=== PATIENT | female | born 1945 | race Caucasian/White ===

== ENCOUNTER 2017-06-17 20:15 | Inpatient (IN) ==
--- NOTE | 2017-06-17 21:25 | Emergency Department Note ---
Disposition Clinical Impression: Left hip pain Hip dislocation, left Qualifiers: Encounter type: initial encounter Qualified Code(s): S73.005A - Unspecified dislocation of left hip, initial encounter Disposition: Admitted As Inpatient Condition: Good Referrals: Levi Fu DO [Primary Care Provider] - Forms: ED Satisfaction Letter Time of Disposition: 00:27 General Adult HPI - General Chief complaint: ED Extremity Injury, Lower Stated complaint: l hip fracture Time Seen by Provider: 06/17/17 20:17 Source: patient, EMS Limitations: no limitations Nursing Notes Reviewed: Yes Vital Signs Reviewed: Yes - History of Present Illness HPI Narrative: Patient is a 72-year-old female that presents to the emergency department via transfer from [facility] in [place]. Patient was reported to have left hip pain and a dislocation on x-ray. Patient reports that she was sitting down into a chair today and then felt pain in her hip. Patient states that she has had hip replacements in the past. She states that she feels that her leg is shorter and more internally rotated than normal. Patient states that her pain is a 7 out of 10. Pain Scale: 9 - Related Data Home Medications Medication Instructions Recorded Confirmed [place] Dm 15 ml PO Q6H PRN 04/25/17 05/08/17 Celecoxib [Celebrex] 200 mg PO DAILY 04/25/17 05/08/17 Docusate [Colace] 100 mg PO BID PRN 04/25/17 05/08/17 Fluticasone Propionate Nasal 1 - 2 spray NS DAILY 04/25/17 05/08/17 [Flonase] Fluticasone/Salmeterol [Advair 1 puff IH BID 04/25/17 05/08/17 250-50 Diskus] Furosemide [Lasix] 40 mg PO DAILY 04/25/17 05/08/17 Methocarbamol [Robaxin] 500 mg PO TID PRN 04/25/17 05/08/17 Mometasone/Formoterol [Dulera 200 2 puff IH Q12H 04/25/17 05/08/17 Mcg/5 Mcg Inhaler] Montelukast [Singulair] 10 mg PO DAILY 04/25/17 05/08/17 OxyCODONE/APAP 5/325 [Percocet 1 tab PO TID PRN 04/25/17 05/08/17 5/325 MG] Potassium Chloride [K-Tab ER] 20 meq PO DAILY 04/25/17 05/08/17 Pramipexole Di-HCl [Pramipexole 0.125 mg PO BID 04/25/17 05/08/17 Dihydrochloride] Pregabalin [Lyrica] 100 mg PO BID 04/25/17 05/08/17 Ranitidine HCl [Acid [place]] 150 mg PO HS 04/25/17 05/08/17 Solifenacin Succinate [Vesicare] 5 mg PO DAILY 04/25/17 05/08/17 Tizanidine HCl 4 mg PO HS PRN 04/25/17 05/08/17 traZODone [TraZODone] 50 mg PO HS 04/25/17 05/08/17 Previous Rx's Medication Instructions Recorded Aspirin Enteric Coated [Aspirin EC] 325 mg PO BID #20 tablet. 04/22/17 OxyCODONE Immed Rel [Roxicodone 5 5 mg PO Q4HR PRN 5 Days #20 tablet 05/11/17 MG] GuaiFENesin/Dextromethorphan 1 each PO BID #14 tab.er.12h 06/17/17 [Mucinex DM] Allergies Allergy/AdvReac Type Severity Reaction Status Date / Time Penicillins Allergy Hives Verified 06/17/17 08:45 All systems ED: reviewed and negative except as stated. Cardiovascular: Denies: chest pain Respiratory: Denies: dyspnea Gastrointestinal: Denies: abdominal pain, nausea, vomiting Musculoskeletal: Reports: other (left hip pain) Past Medical History - Past Medical History Medical history: Reports: arthritis, asthma, diabetes, GERD, hypertension Surgical history: Reports: hip replacement, hysterectomy Psychiatric history: Reports: no psych history - Social History Smoking Status: Former smoker Smokeless Tobacco Status: No Alcohol use: Reports: none Drug use: Reports: none Physical Exam - General Limitations: no limitations General appearance: alert, in no apparent distress - Head Head exam: atraumatic, normocephalic - Eye Eye exam: Present: normal appearance, EOMI - Neck Neck exam: Present: normal inspection, full ROM, trachea midline - Respiratory Respiratory exam: Present: normal lung sounds bilaterally. Absent: respiratory distress, wheezes - Cardiovascular Cardiovascular exam: Present: regular rate, normal rhythm, normal heart sounds, +S1, +S2 - Abdominal Exam Abdominal exam: Present: soft, Non-Tender, normal bowel sounds - Extremities Exam Extremities exam: Present: other (The left lower extremity appears to be shortened and internally rotated. The patient has pain over the left hip.) - Expanded Lower Extremity Exam Hip/Pelvis exam: Present: tenderness (left hip), deformity, internal rotation, shortening. Absent: normal inspection, full ROM Neurovascular/Tendon exam: Present: normal capillary refill, normal fine/light touch. Absent: pulse deficit, sensory deficit, extremity cold to touch - Neurological Exam Neurological exam: Present: alert, oriented X3 - Psychiatric Psychiatric exam: Present: normal affect, normal mood - Skin Skin exam: Present: warm, dry, intact, other (Surgical scar over the left hip) Course Vital Signs Temperature 98.1 F 06/17/17 20:23 Pulse Rate 79 06/17/17 20:23 Respiratory Rate 18 06/17/17 20:23 Blood Pressure 140/69 06/17/17 20:23 O2 Sat by Pulse Oximetry 97 06/17/17 20:23 Temperature 97.6 F 06/17/17 23:58 Pulse Rate 94 06/17/17 23:58 Respiratory Rate 20 06/17/17 23:58 Blood Pressure 135/83 06/17/17 23:58 O2 Sat by Pulse Oximetry 98 06/17/17 22:59 Oxygen Delivery Oxygen Delivery [00:05] Nasal Cannula Oxygen Delivery [00:03] Nasal Cannula Oxygen Delivery Room Air Procedures - Orthopedic Joint Reduction Joint #1 Consent Obtained: written consent Side: left Joint Reduction Location: hip ASA Classification: CLASS II-Mild systemic disease Analgesia: procedural sedation Technique used: traction/counter-traction, direct manipulation Post-reduction neuro exam: intact Post-reduction vascular: intact Patient Tolerated Procedure: well Additional Comments: Hip was unable to be reduced. Medical Decision Making - MDM Narrative Medical decision making narrative: X-rays from an outside facility were reviewed and there was a hip dislocation. I called and spoke with Dr. Correa and he recommended that we try to reduce the hip here in the emergency department. Procedural sedation and there was 2 attempts made to reduce the patient's hip but they were unsuccessful. I then called Dr. Correa who recommended the patient be admitted to the hospital under the medicine service and they would see them in consult. I called and spoke with the admitting hospitalist made except to the patient to their service. They did request that basic laboratory testing be obtained. A CBC, BMP and coagulation studies were obtained. The patient will be admitted to the hospital at this time for further evaluation and management. A consult was placed orthopedic surgery for Dr. Correa. On reevaluation after the attempted hip reduction the patient had normal sensation and good pulses. Patient was neurovascularly intact. Due to the patient at the reduction was unsuccessful and she would need to be admitted to the hospital. She was in agreement with this. - Radiology Data Radiology results reviewed: Yes I reviewed the patient's radiology results.
[2017-06-17] MEDS ORDERED: *HR* Etomidate 20 MG/10 ML AMPUL IVP ONE (22:11)
[2017-06-17] MEDS ORDERED: *HR* FentaNYL (PF) 100 MCG/2 ML VIAL IVP ONE (22:27)
[2017-06-17] MEDS ORDERED: 0.9 % Sodium Chloride 500 ML IVC SCH (22:30)
--- NOTE | 2017-06-17 22:31 | Emergency Department Note ---
Disposition Clinical Impression: Left hip pain, Hip dislocation, left Disposition: Admitted As Inpatient Condition: Good General Adult HPI - General Chief complaint: ED Extremity Injury, Lower Stated complaint: l hip fracture Time Seen by Provider: 06/17/17 20:17 Source: patient, EMS Limitations: no limitations Nursing Notes Reviewed: Yes Vital Signs Reviewed: Yes - History of Present Illness Pain Scale: 7 - Related Data Home Medications Medication Instructions Recorded Confirmed [place] Dm 15 ml PO Q6H PRN 04/25/17 05/08/17 Celecoxib [Celebrex] 200 mg PO DAILY 04/25/17 05/08/17 Docusate [Colace] 100 mg PO BID PRN 04/25/17 05/08/17 Fluticasone Propionate Nasal 1 - 2 spray NS DAILY 04/25/17 05/08/17 [Flonase] Fluticasone/Salmeterol [Advair 1 puff IH BID 04/25/17 05/08/17 250-50 Diskus] Furosemide [Lasix] 40 mg PO DAILY 04/25/17 05/08/17 Methocarbamol [Robaxin] 500 mg PO TID PRN 04/25/17 05/08/17 Mometasone/Formoterol [Dulera 200 2 puff IH Q12H 04/25/17 05/08/17 Mcg/5 Mcg Inhaler] Montelukast [Singulair] 10 mg PO DAILY 04/25/17 05/08/17 OxyCODONE/APAP 5/325 [Percocet 1 tab PO TID PRN 04/25/17 05/08/17 5/325 MG] Potassium Chloride [K-Tab ER] 20 meq PO DAILY 04/25/17 05/08/17 Pramipexole Di-HCl [Pramipexole 0.125 mg PO BID 04/25/17 05/08/17 Dihydrochloride] Pregabalin [Lyrica] 100 mg PO BID 04/25/17 05/08/17 Ranitidine HCl [Acid Portal Architect] 150 mg PO HS 04/25/17 05/08/17 Solifenacin Succinate [Vesicare] 5 mg PO DAILY 04/25/17 05/08/17 Tizanidine HCl 4 mg PO HS PRN 04/25/17 05/08/17 traZODone [TraZODone] 50 mg PO HS 04/25/17 05/08/17 Previous Rx's Medication Instructions Recorded Aspirin Enteric Coated [Aspirin EC] 325 mg PO BID #20 tablet. 04/22/17 OxyCODONE Immed Rel [Roxicodone 5 5 mg PO Q4HR PRN 5 Days #20 tablet 05/11/17 MG] GuaiFENesin/Dextromethorphan 1 each PO BID #14 tab.er.12h 06/17/17 [Mucinex DM] Allergies Allergy/AdvReac Type Severity Reaction Status Date / Time Penicillins Allergy Hives Verified 06/17/17 08:45 Past Medical History - Past Medical History Medical history: Reports: arthritis, asthma, diabetes, GERD, hypertension Surgical history: Reports: hip replacement, hysterectomy Psychiatric history: Reports: no psych history - Social History Smoking Status: Former smoker Smokeless Tobacco Status: No Alcohol use: Reports: none Drug use: Reports: none Physical Exam - General Limitations: no limitations General appearance: alert, in no apparent distress Course - Reevaluation(s) Reevaluation #1: I examined this patient and my medical decision-making was reviewed with Dr. Luu. I agree with the documented findings, disposition and treatment plan. This is a 72 year-old female with history of HTN. A few hours ago, she had acute onset of left hip pain as she sat down in the car. She says this feels similar to previous hip dislocations. She was seen at [facility], where dislocation was confirmed, and she was transferred here for further management. On exam, vitals are stable. Patient comfortable. Left lower extremity shortened and internally rotated. Distal pulses are intact. Motor and sensory function intact. Dr. Luu has discussed the case with patient's orthopedist, Dr. Correa. He asks that we attempt reduction in the ED. Time: 22:28 Vital Signs Temperature 98.1 F 06/17/17 20:23 Pulse Rate 79 06/17/17 20:23 Respiratory Rate 18 06/17/17 20:23 Blood Pressure 140/69 06/17/17 20:23 O2 Sat by Pulse Oximetry 97 06/17/17 20:23 Temperature 97.6 F 06/17/17 23:58 Pulse Rate 94 06/17/17 23:58 Respiratory Rate 20 06/17/17 23:58 Blood Pressure 135/83 06/17/17 23:58 O2 Sat by Pulse Oximetry 98 06/17/17 22:59 Oxygen Delivery Oxygen Delivery [00:05] Nasal Cannula Oxygen Delivery [00:03] Nasal Cannula Oxygen Delivery Room Air
--- NOTE | 2017-06-18 00:48 | Internal Med History&Physical ---
Date of Encounter: 06/18/17 Time of Encounter: 00:46 Internal Medicine - H&P: HPI Chief complaint: hip fracture Admitted From: Emergency Dept Plans for Post Hospital Care: Home History of present illness: Ms. 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 This was suddenly as she was getting out of the car. She did not fall. She suddenly felt pain and noticed that her left lower extremity was shorter than her right. She went to [facility] where she was found to have a dislocation of her prior prostheses. Dr. Correa from orthopedics was consulted in the ED and recommended a trial of reducing the dislocation in the ED. This was attempted twice and was unsuccessful. The patient is being admitted for pain control and to be seen by orthopedics. Denies any other symptoms. Denies fever, chills, nausea, vomiting, chest pain, shortness of breath, abdominal pain, diarrhea, constipation, urinary symptoms, or neurological symptoms. Past Med Surg Social Fam HX - Past Medical History Medical history: arthritis, asthma, diabetes, GERD, hypertension Psychiatric history: no psych history - Past Surgical History Surgical History: hip replacement, hysterectomy - Social History Smoking Status: Former smoker Smokeless Tobacco Status: No Alcohol use: none Drug use: none Internal Medicine - H&P: Meds Aspirin Enteric Coated [Aspirin EC] 325 mg PO BID #20 tablet. 04/22/17 [Rx] [place] Dm 15 ml PO Q6H PRN 04/25/17 [History] Celecoxib [Celebrex] 200 mg PO DAILY 04/25/17 [History] Docusate [Colace] 100 mg PO BID PRN 04/25/17 [History] Fluticasone Propionate Nasal [Flonase] 1 - 2 spray NS DAILY 04/25/17 [History] Fluticasone/Salmeterol [Advair 250-50 Diskus] 1 puff IH BID 04/25/17 [History] Furosemide [Lasix] 40 mg PO DAILY 04/25/17 [History] Methocarbamol [Robaxin] 500 mg PO TID PRN 04/25/17 [History] Mometasone/Formoterol [Dulera 200 Mcg/5 Mcg Inhaler] 2 puff IH Q12H 04/25/17 [ History] Montelukast [Singulair] 10 mg PO DAILY 04/25/17 [History] OxyCODONE/APAP 5/325 [Percocet 5/325 MG] 1 tab PO TID PRN 04/25/17 [History] Potassium Chloride [K-Tab ER] 20 meq PO DAILY 04/25/17 [History] Pramipexole Di-HCl [Pramipexole Dihydrochloride] 0.125 mg PO BID 04/25/17 [ History] Pregabalin [Lyrica] 100 mg PO BID 04/25/17 [History] Ranitidine HCl [Acid Bench Carpenter] 150 mg PO HS 04/25/17 [History] Solifenacin Succinate [Vesicare] 5 mg PO DAILY 04/25/17 [History] Tizanidine HCl 4 mg PO HS PRN 04/25/17 [History] traZODone [TraZODone] 50 mg PO HS 04/25/17 [History] OxyCODONE Immed Rel [Roxicodone 5 MG] 5 mg PO Q4HR PRN 5 Days #20 tablet [Rx] GuaiFENesin/Dextromethorphan [Mucinex DM] 1 each PO BID #14 tab.er.12h 06/17/17 [Rx] 3 Allergy/AdvReac Type Severity Reaction Status Date / Time Penicillins Allergy Hives Verified 06/17/17 08:45 All Systems PM: A 10-system review of systems was performed and is negative for pertinent findings except as documented above in the HPI. Review of systems: All systems reviewed are negative except as mentioned above - Constitutional Vitals: Temp Pulse Resp BP Pulse Ox 97.6 F 94 20 135/83 98 06/17/17 23:58 06/17/17 23:58 06/17/17 23:58 06/17/17 23:58 06/17/17 22:59 Exam: GEN: NAD HEENT: AT, NC, No cyanosis, oral mucosa is moist, No JVD Lymphatics: No lymphadenoapthy Eyes: Extrocular muscles intact, anicteric CVS:RRR. S1, S2, No m/r/g RESP: CTAB ABD: Soft, NT, ND, +BS EXT: No edema, No rashes, 2+ DP. Left lower extremity is noted to be shortened compared to the right. It is internally rotated. NEURO: Nonfocal, CN II-XII intact, decreased range of motion on the left lower extremity. Psych: Cooperative, Not anxious or depressed - Assessment and plan (1) Hip dislocation, left Current Visit: Yes Status: Acute Assessment and plan: Admit the patient. Nothing by mouth now. Basic labs ordered. Consult orthopedics. Pain control. Qualifiers: Encounter type: initial encounter Qualified Code(s): S73.005A - Unspecified dislocation of left hip, initial encounter (2) Diabetes mellitus Current Visit: Yes Status: Acute Assessment and plan: Patient's diabetes is usually controlled with diet and lifestyle modifications. We will place on insulin sliding scale while here. Place on Accu-Cheks. Qualifiers: Diabetes mellitus type: type 2 Diabetes mellitus group home insulin use: without group home use Diabetes mellitus complication status: without complication Qualified Code(s): E11.9 - Type 2 diabetes mellitus without complications (3) HTN (hypertension) Current Visit: No Status: Chronic Assessment and plan: Resume home antihypertensives Qualifiers: Hypertension type: essential hypertension Qualified Code(s): I10 - Essential (primary) hypertension (4) DVT prophylaxis Current Visit: Yes Status: Acute Assessment and plan: Heparin subcutaneous - Time Spent With Patient Total time spent is greater than 50% in coordination of care (as documented) at patient's floor/unit and/or counseling patient:
[2017-06-18] MEDS ORDERED: Acetaminophen 325 MG TABLET PO PRN ×3 (01:07→21:29)
[2017-06-18] MEDS ORDERED: *HR* HYDROcodone/Acet 5/325 mg TABLET PO PRN ×2 (01:07→20:19)
[2017-06-18] MEDS ORDERED: Naloxone 0.4 MG/ML INJ IVP PRN ×5 (01:07→21:29)
[2017-06-18] MEDS ORDERED: *HR* Dextrose 50 % in Water (Syg) 50 ML SYRINGE IVP PRN ×3 (01:12→21:29)
[2017-06-18] MEDS ORDERED: Dextrose Gel 15 GM/37.5 ML TUBE PO PRN ×6 (01:12→21:29)
[2017-06-18] MEDS ORDERED: D5% in Water 1,000 ML IVC PRN ×3 (01:12→21:29)
[2017-06-18 01:24] LABS: Basophils # 0.1 K/mcL (0.0-0.2); Basophils % 0.7 %; Eosinophils # 0.1 K/mcL (0.0-0.6); Eosinophils % 1.1 %; Hematocrit 30.8 % (35.3-44.9); Hemoglobin 10.1 g/dL (11.5-15.4); Immature Granulocytes % 0.4 % (0-4); Lymphocytes # 1.2 K/mcL (0.6-4.6); Lymphocytes % 14.1 %; Mean Corpuscular HGB Conc 32.8 g/dL (31.6-35.5); Mean Corpuscular Hemoglobin 27.4 pg (28.0-33.3); Mean Corpuscular Volume 83.5 fL (83.0-100.0); Mean Platelet Volume 9.8 fL (9.4-12.4); Monocytes # 1.2 K/mcL (0.0-1.3); Monocytes % 13.6 %; Platelet Count 456 K/mcL (140-400); Red Blood Count 3.69 M/mcL (3.82-4.97); Red Cell Distribution Width 13.8 % (11.5-14.5); Segmented Neutrophils % 70.1 %
[2017-06-18 01:45] LABS: Calcium 8.9 mg/dL (8.6-10.3); Potassium 2.3 mEq/L (3.5-5.1)
[2017-06-18 02:14] LABS: Activated Partial Thrombo Time 30.4 Seconds (26.0-36.0); INR 1.3; Prothrombin Time 14.3 Seconds (9.4-12.1)
--- NOTE | 2017-06-18 03:36 | Event Note ---
Date of Encounter: 06/18/17 Time of Encounter: 03:35 Labs came back with K 2.3 and cretinine 2.51. Baseline creatinine is normal. Will give K IV and oral. Will start gentle hydration.
[2017-06-18] MEDS ORDERED: 0.9 % Sodium Chloride 1,000 ML IVC SCH ×3 (03:45→21:29)
--- NOTE | 2017-06-18 06:39 | Orthopedic Consult Note ---
Date of Encounter: 06/18/17 Time of Encounter: 06:37 History of Present Illness HPI: Ms. Contreras is a 72 year old female Well known to me status post revision of left hip secondary to acetabular dysplasia with failure of acetabular implant. Patient presents with dislocation of left hip. Patient recently received medication unable to answer questions. Examination left lower extremity shortened internally rotated dressing clean dry and intact X-rays reviewed show acetabular component unchanged femoral component unchanged in positions, hip dislocated. Acetabular augment may have shifted. Patient being treated for superficial wound dehiscence, plan is for closed reduction possible reduction with constrained liner. We will discuss with patient and family before surgery when effects of medication has worn off. Past Med Surg Social Fam HX - Past Medical History Medical history: arthritis, asthma, diabetes, GERD, hypertension Psychiatric history: no psych history - Past Surgical History Surgical History: hip replacement, hysterectomy - Social History Smoking Status: Former smoker Smokeless Tobacco Status: No Alcohol use: none Drug use: none - Family History Grandmother Living Status: Cause of : PR Hx Family Cardiac Disorders: Yes Hx Family Psychosocial Disorders: Yes Father Living Status: Cause of : PR Hx Family Cardiac Disorders: Yes Mother Living Status: Cause of : PR Hx Family Cardiac Disorders: Yes Medications and Allergies Aspirin Enteric Coated [Aspirin EC] 325 mg PO BID #20 tablet. 04/22/17 [Rx] [place] Dm 15 ml PO Q6H PRN 04/25/17 [History] Celecoxib [Celebrex] 200 mg PO DAILY 04/25/17 [History] Docusate [Colace] 100 mg PO BID PRN 04/25/17 [History] Fluticasone Propionate Nasal [Flonase] 1 - 2 spray NS DAILY 04/25/17 [History] Fluticasone/Salmeterol [Advair 250-50 Diskus] 1 puff IH BID 04/25/17 [History] Furosemide [Lasix] 40 mg PO DAILY 04/25/17 [History] Methocarbamol [Robaxin] 500 mg PO TID PRN 04/25/17 [History] Mometasone/Formoterol [Dulera 200 Mcg/5 Mcg Inhaler] 2 puff IH Q12H 04/25/17 [ History] Montelukast [Singulair] 10 mg PO DAILY 04/25/17 [History] OxyCODONE/APAP 5/325 [Percocet 5/325 MG] 1 tab PO TID PRN 04/25/17 [History] Potassium Chloride [K-Tab ER] 20 meq PO DAILY 04/25/17 [History] Pramipexole Di-HCl [Pramipexole Dihydrochloride] 0.125 mg PO BID 04/25/17 [ History] Pregabalin [Lyrica] 100 mg PO BID 04/25/17 [History] Ranitidine HCl [Acid Artists' Booking Representative] 150 mg PO HS 04/25/17 [History] Solifenacin Succinate [Vesicare] 5 mg PO DAILY 04/25/17 [History] Tizanidine HCl 4 mg PO HS PRN 04/25/17 [History] traZODone [TraZODone] 50 mg PO HS 04/25/17 [History] OxyCODONE Immed Rel [Roxicodone 5 MG] 5 mg PO Q4HR PRN 5 Days #20 tablet [Rx] GuaiFENesin/Dextromethorphan [Mucinex DM] 1 each PO BID #14 tab.er.12h 06/17/17 [Rx] 3 Allergy/AdvReac Type Severity Reaction Status Date / Time Penicillins Allergy Hives Verified 06/17/17 08:45 All Systems Reviewed: The remainder of the systems were reviewed and are negative Physical Exam - Constitutional Vitals: Temp Pulse Resp BP Pulse Ox 98.2 F 77 18 123/66 99 06/18/17 02:51 06/18/17 02:51 06/18/17 02:51 06/18/17 02:51 06/18/17 02:51 Results - Labs Result Diagrams: 06/18/17 00:26 06/18/17 00:26 Labs: Abnormal lab results RBC 3.69 M/mcL (3.82-4.97) L 06/18/17 00:26 Hgb 10.1 g/dL (11.5-15.4) L 06/18/17 00:26 Hct 30.8 % (35.3-44.9) L 06/18/17 00:26 MCH 27.4 pg (28.0-33.3) L 06/18/17 00:26 Plt Count 456 K/mcL (140-400) H 06/18/17 00:26 PT 14.3 Seconds (9.4-12.1) H 06/18/17 00:26 Potassium 2.3 mEq/L (3.5-5.1) L* 06/18/17 00:26 Chloride 97 mEq/L (98-107) L 06/18/17 00:26 Carbon Dioxide 30 mEq/L (23-29) H 06/18/17 00:26 Creatinine 2.51 mg/dL (0.60-1.20) H 06/18/17 00:26 Est GFR ( Amer) 23 (> 60) L 06/18/17 00:26 Est GFR (Non-Af Amer) 19 (> 60) L 06/18/17 00:26 Glucose 107 mg/dL (70-105) H 06/18/17 00:26 POC Glucose 108 mg/dL (70-99) H 06/18/17 01:44 All other labs normal. Consult Discharge Plan - Plan Referrals: Levi Fu DO [Primary Care Provider] -
[2017-06-18] MEDS: Insulin LISPRO 300 UNITS/3 ML VIAL SQ SCH ×3 (07:43→17:12)
[2017-06-18] MEDS: *HR* Heparin 5,000 UNIT/ML VIAL SQ SCH ×3 (07:43→22:16)
[2017-06-18 11:52] LABS: Albumin 3.2 g/dL (3.5-5.7); Bilirubin,Total 0.4 mg/dL (0.3-1.0); Calcium 8.8 mg/dL (8.6-10.3); Globulin 3.1 g/dL (2.4-3.5); Potassium 3.1 mEq/L (3.5-5.1); Total Protein 6.3 g/dL (6.4-8.9)
--- NOTE | 2017-06-18 12:16 | Event Note ---
Date of Encounter: 06/18/17 Time of Encounter: 12:14 Patient seen and examined at the bedside today. Patient is a 72-year-old female who is well known to the orthopedic surgery service who is status post left hip revision due to acetabular dysplasia with failure of acetabular implant and now has dislocation of the left hip. Surgery is going to be planning on doing a closed reduction later on today if needed would be converted to open reduction and internal fixation. Patient also had acute renal failure which has been noted to be of recent origin. Patient does take Lasix twice a day which has been stopped. She is now currently getting IV fluids and I will repeat a BMP before she heads off into the procedure. She has not had good by mouth intake as per her history and that might explain her acute renal failure as well as weakness and lethargy. Also had hypokalemia for which potassium was repleted. We will follow closely with repeat BMP Rest of the assessment and plan as per initial H&P per the admitting hospitalist. We will follow closely
--- NOTE | 2017-06-18 14:18 | Anesthesia Evaluation PreOp ---
Date of Encounter: 06/18/17 Time of Encounter: 14:16 - Past History Planned Operation: L hip closed vs open reduction vs revision Cardiac History: HTN, Hyperlipidemia Pulmonary History: Asthma C CONSULTANT History: Other (dementia, poss with SCS) Other Medical History: Renal (acute renal failure), GERD Anesthesia History: No Prior Anesthetic Complications Alcohol Use: none Drug use: none Medications and Allergies Aspirin Enteric Coated [Aspirin EC] 325 mg PO BID #20 tablet. 04/22/17 [Rx] Celecoxib [Celebrex] 200 mg PO DAILY 04/25/17 [History] Docusate [Colace] 100 mg PO BID PRN 04/25/17 [History] Fluticasone Propionate Nasal [Flonase] 1 - 2 spray NS DAILY 04/25/17 [History] Fluticasone/Salmeterol [Advair 250-50 Diskus] 1 puff IH BID 04/25/17 [History] Furosemide [Lasix] 40 mg PO DAILY 04/25/17 [History] Methocarbamol [Robaxin] 500 mg PO TID PRN 04/25/17 [History] Mometasone/Formoterol [Dulera 200 Mcg/5 Mcg Inhaler] 2 puff IH Q12H 04/25/17 [ History] Montelukast [Singulair] 10 mg PO DAILY 04/25/17 [History] Potassium Chloride [K-Tab ER] 20 meq PO DAILY 04/25/17 [History] Pramipexole Di-HCl [Pramipexole Dihydrochloride] 0.125 mg PO BID 04/25/17 [ History] Pregabalin [Lyrica] 100 mg PO BID 04/25/17 [History] Ranitidine HCl [Acid Internet [employer] E Business Project Manager] 150 mg PO HS 04/25/17 [History] Solifenacin Succinate [Vesicare] 5 mg PO DAILY 04/25/17 [History] Tizanidine HCl 4 mg PO HS PRN 04/25/17 [History] traZODone [TraZODone] 50 mg PO HS 04/25/17 [History] OxyCODONE Immed Rel [Roxicodone 5 MG] 5 mg PO Q4HR PRN 5 Days #20 tablet [Rx] 3 Allergy/AdvReac Type Severity Reaction Status Date / Time Penicillins Allergy Hives Verified 06/17/17 08:45 - Meds/Allergy Pre-op Review Medications Reviewed: Yes Allergies Reviewed: Yes Beta Blockers on Current Med List: No Anesthesia Results - Labs 06/18/17 00:26 06/18/17 10:33 baseline Cr normal - lasix currently being held - Imaging EKG: report reviewed, image reviewed (SINUS RHYTHM WITH OCCASIONAL SUPRAVENTRICULAR PREMATURE COMPLEXES LOW QRS VOLTAGE IN PRECORDIAL LEADS Poor R wave progression) Anesthesia Exam Last Vital Signs Temp 97.9 F 06/18/17 11:07 Pulse 68 06/18/17 11:07 Resp 16 06/18/17 11:07 BP 147/80 06/18/17 11:07 Pulse Ox 94 06/18/17 11:07 - HEENT Pupil (Motor): Pupils equal, EOMI Mallampati: II Teeth: Normal Oral Opening: Greater than 3 - C CONSULTANT LOC: Oriented - Cardiac Rhythm: Regular Murmur: None - Pulmonary Breath Sounds: bilateral Clear Respiratory Effort: Symmetrical Anesthesia Assess/Plan ASA Score: 3 Modified [place] Scale for Level of Consciousness: Cooperative, oriented, and tranquil Anesthetic Plan: General Monitoring Plan: Standard Monitors Recovery Plan: PACU
[2017-06-18] MEDS ORDERED: Piperacillin/Tazobactam 3.375 GM in 0.9 % Sodium Chloride Mini Bag 100 ML IVPB SCH (15:00)
[2017-06-18 17:01] LABS: Hematocrit 29.8 % (35.3-44.9); Hemoglobin 9.6 g/dL (11.5-15.4)
[2017-06-18] MEDS ORDERED: *HR* Propofol 200 MG/20 ML VIAL IVP ONE ×3 (19:30→21:13)
[2017-06-18] MEDS ORDERED: *HR* FentaNYL (PF) 100 MCG/2 ML VIAL ONE ×2 (19:30→19:34)
[2017-06-18] MEDS ORDERED: Lidocaine -MPF 2% 2 ML VIAL ONE ×2 (19:30→19:35)
[2017-06-18] MEDS ORDERED: *HR* Succinylcholine 200 MG/10 ML VIAL IVP ONE ×2 (19:35→19:43)
[2017-06-18] MEDS ORDERED: Ondansetron 4 MG/2 ML VIAL ONE (19:58)
[2017-06-18] MEDS ORDERED: Dexamethasone 4 MG/ML VIAL ONE (19:58)
[2017-06-18] MEDS ORDERED: *HR* Rocuronium Bromide 50 MG/5 ML VIAL ONE (20:05)
[2017-06-18] MEDS ORDERED: Ethanol\\Acetic Acid\\Na Ace\\Ben 1,000 ML IRRIG.SOLN IR ONE ×2 (20:14→20:35)
[2017-06-18] MEDS ORDERED: Temazepam 15 MG CAPSULE PO PRN ×3 (20:19→21:29)
[2017-06-18] MEDS ORDERED: Sennosides 8.6 MG TABLET PO PRN ×3 (20:19→21:29)
[2017-06-18] MEDS ORDERED: Ondansetron 4 MG/2 ML VIAL IVP PRN ×3 (20:19→21:29)
[2017-06-18] MEDS ORDERED: MOM Conc 10 ML UD.LIQ PO PRN ×3 (20:19→21:29)
[2017-06-18] MEDS ORDERED: 0.9 % Sodium Chloride 500 ML IVC SCH ×2 (20:19→21:29)
[2017-06-18] MEDS ORDERED: Ringers Solution, Lactated 1,000 ML IVC SCH ×2 (20:19→21:29)
[2017-06-18] MEDS ORDERED: Neostigmine Methylsulfate 3 MG/3 ML SYRINGE ONE (20:25)
[2017-06-18] MEDS ORDERED: *HR* OxyCODONE Immed Rel 5 MG TABLET PO PRN ×2 (20:29→21:29)
[2017-06-18] MEDS ORDERED: CeFAZolin Syr 2,000MG/20 ML 2,000 MG/20 ML SYRINGE IVPB ONE (20:34)
[2017-06-18] MEDS ORDERED: Acetaminophen IV 1,000 MG/100 ML INFUS..BTL IVPB ONE ×2 (20:46→21:29)
--- NOTE | 2017-06-18 20:52 | Orthopedic Operative Note ---
Date of procedure: 06/18/17 Pre-op diagnosis: Dislocation of revision left total hip. Post-op diagnosis: same (Separation of metal liner during closed reduction loose augment) Procedure: Procedure: Left hip failed attempted closed reduction open reduction revision total hip replacement Estimated blood loss: 400 mL Hardware: Cece metal and Emily constrain liner with a 11 stem -4 head Findings: During attempted closed reduction the metal liner from the acetabular component. Need to convert to open surgery was required. Patient was placed in the [id number] left side up lateral decubitus position all pressure points padded appropriately the head was stabilized in its position the left lower extremity is prepped and draped in sterile surgical fashion patient received IV antibiotic prior skin incision. Patient was being treated in the office prior to this for a wound dehiscence this was also completely healed. Because the patient is undergoing surgery and elliptical incision was made around this area. Incision was made through skin subcutaneous tissue hemostasis was obtained Bovie cautery. The trauma that the dislocation disrupted the fascia. Patient had a hematoma no purulent material was identified. Cultures were obtained. The augment with the 3 screws were removed without incident, this was loose as well as the cement mantle that was holding the augment to the acetabular component. The metal liner was also loose and removed without incident. The femoral head was removed followed by the femoral stem. The acetabulum was examined all screws were examined one screw was loose and was removed. The acetabulum appeared to have good fixation. Decision at this point was made to irrigate with antibacterial solution [address] a constrained liner within the well fixed acetabular cup. This was secured. Attention was then turned to the femoral, there was concern there was some femoral subsidence so that he was broached up from a 10- 11 in 20 degrees of anteversion. An 11 stem was impacted in place. A -4 head was used for the reduction hip was reduced within the constrain liner. Had good motion good stability and no evidence of movement of the acetabular component. The wound was irrigated again with an antibacterial solution. Was closed by the PA over a THAIS drain deep #2 PDS suture superficially with 0 PDS suture skin was closed with skin reece. Patient placed in a sterile dressing postoperative brace including abduction pillow and knee immobilizer. Patient was extubated and transferred to recovery room stable condition. Anesthesia: GETA Surgeon: Marlon Correa Was there an judicial administrative assistant present: Yes Life Advisor: Marycruz Peters Estimated blood loss (cc): 400 Condition: stable Disposition: PACU
[2017-06-18] MEDS ORDERED: Famotidine 20 MG TABLET PO SCH ×2 (21:00)
[2017-06-18] MEDS ORDERED: SUGAMMADEX SODIUM 500 MG/5 ML VIAL IV ONE (21:06)
--- NOTE | 2017-06-18 21:54 | Anesthesia Evaluation Post Op ---
Date of Encounter: 06/18/17 Time of Encounter: 21:53 - Vital Signs Vital Signs: Vital Signs Temperature 98.1 F 06/17/17 20:23 Pulse Rate 79 06/17/17 20:23 Respiratory Rate 18 06/17/17 20:23 Blood Pressure 140/69 06/17/17 20:23 O2 Sat by Pulse Oximetry 97 06/17/17 20:23 Temperature 98.1 F 06/18/17 21:49 Pulse Rate 80 06/18/17 21:49 Respiratory Rate 16 06/18/17 21:49 Blood Pressure 137/52 06/18/17 21:49 O2 Sat by Pulse Oximetry 98 06/18/17 21:49 Oxygen Delivery Oxygen Delivery [00:05] Nasal Cannula Oxygen Delivery [00:03] Nasal Cannula Oxygen Delivery Room Air - Lungs Lungs: Clear Ascult./Percussion - Airway Airway: Non-obstructed - Cardiovascular Regular Rate - Mental Status Mental Status: Baseline Status - Pain Pain Scale: 3 Pain Scale used: Numeric (1 - 10) - Nausea Vomiting Nausea Vomiting: Not Present - Hydration Hydration: Ice chips, Thornton catheter - Discharge PostOp Status: Transfer Patient to floor
[2017-06-18] MEDS ORDERED: *HR* Heparin 5,000 UNIT/ML VIAL SQ SCH (22:00)
[2017-06-18] MEDS: Ringers Solution, Lactated 1,000 ML IVC SCH (22:32)
[2017-06-19] MEDS ORDERED: Insulin LISPRO 300 UNITS/3 ML VIAL SQ SCH
[2017-06-19] MEDS: Insulin LISPRO 300 UNITS/3 ML VIAL SQ SCH ×5 (00:31→23:07)
[2017-06-19] MEDS ORDERED: Piperacillin/Tazobactam 3.375 GM in 0.9 % Sodium Chloride Mini Bag 100 ML IVPB SCH (03:00)
[2017-06-19] MEDS: Piperacillin/Tazobactam 3.375 GM in 0.9 % Sodium Chloride Mini Bag 100 ML IVPB SCH ×2 (05:01→16:00)
[2017-06-19] MEDS: *HR* Heparin 5,000 UNIT/ML VIAL SQ SCH ×3 (05:02→19:50)
[2017-06-19 06:17] LABS: Hematocrit 29.7 % (35.3-44.9); Hemoglobin 9.6 g/dL (11.5-15.4)
--- NOTE | 2017-06-19 06:28 | Orthopedics Progress Note ---
Date of Encounter: 06/19/17 Time of Encounter: 06:28 Subjective Interval history: Patient was seen this morning doing well without complaints. Afebrile vital signs stable. Operative extremity: Neurovascularly intact Dressing clean dry and intact Calves nontender Assessment and plan: Continue with postoperative care Gram stain negative for bacteria hemoglobin 9.6 Objective Vital signs: Vital Signs Temp Pulse Resp BP Pulse Ox 06/19/17 03:47 98.2 F 77 16 106/58 99 06/18/17 23:10 97.5 F L 75 16 120/71 99 06/18/17 22:40 97.4 F L 74 16 121/77 99 06/18/17 22:10 97.4 F L 81 16 132/83 100 06/18/17 21:49 98.1 F 80 16 137/52 98 06/18/17 21:39 97.6 F 78 16 137/52 98 06/18/17 21:29 97.6 F 74 16 150/63 97 06/18/17 21:19 97.6 F 76 16 131/84 100 Intake and Output 06/18/17 06/18/17 06/19/17 15:59 23:59 07:59 Output Total 780 / 780 50 / 50 Balance -780 / -780 -50 / -50 Output: Estimated Blood Loss 400 / 400 Urine Amount (Catheter) 300 / 300 Wound Drainage 80 / 80 50 / 50 Left Hip 20 / 20 50 / 50 Other: Blood Glucose* 90 105 - Labs CBC & BMP: 06/19/17 06:02 06/18/17 10:33 Labs: Abnormal lab results RBC 3.69 M/mcL (3.82-4.97) L 06/18/17 00:26 Hgb 9.6 g/dL (11.5-15.4) L 06/19/17 06:02 Hct 29.7 % (35.3-44.9) L 06/19/17 06:02 MCH 27.4 pg (28.0-33.3) L 06/18/17 00:26 Plt Count 456 K/mcL (140-400) H 06/18/17 00:26 ESR 72 mm/hr (0-15) H 06/18/17 10:33 PT 14.3 Seconds (9.4-12.1) H 06/18/17 00:26 Potassium 3.1 mEq/L (3.5-5.1) L D 06/18/17 10:33 Creatinine 2.37 mg/dL (0.60-1.20) H 06/18/17 10:33 Est GFR ( Amer) 24 (> 60) L 06/18/17 10:33 Est GFR (Non-Af Amer) 20 (> 60) L 06/18/17 10:33 C-Reactive Protein 71 mg/L (Less than 10) H 06/18/17 10:33 Serum Total Protein 6.3 g/dL (6.4-8.9) L 06/18/17 10:33 Albumin 3.2 g/dL (3.5-5.7) L 06/18/17 10:33 Albumin/Globulin Ratio 1.0 (1.1-2.2) L 06/18/17 10:33 - VTE Documentation of Mechanical Device: Intermittent pneumatic compression device Consult Discharge Plan - Plan Referrals: Levi Fu DO [Primary Care Provider] -
[2017-06-19] MEDS ORDERED: Ascorbic Acid 500 MG TABLET PO SCH ×2 (08:00)
[2017-06-19] MEDS: Multivit/Ca/Min/Fe/FA 1 TAB TABLET PO SCH (08:12)
[2017-06-19] MEDS: *HR* HYDROcodone/Acet 5/325 mg TABLET PO PRN ×3 (08:13→21:57)
[2017-06-19] MEDS ORDERED: Multivit/Ca/Min/Fe/FA 1 TAB TABLET PO SCH ×2 (09:00)
[2017-06-19] MEDS: Ascorbic Acid 500 MG TABLET PO SCH ×2 (09:06→16:00)
[2017-06-19 10:49] LABS: Albumin 3.2 g/dL (3.5-5.7); Bilirubin,Total 0.4 mg/dL (0.3-1.0); Calcium 8.4 mg/dL (8.6-10.3); Globulin 3.1 g/dL (2.4-3.5); Potassium 3.1 mEq/L (3.5-5.1); Total Protein 6.3 g/dL (6.4-8.9)
--- NOTE | 2017-06-19 12:22 | Event Note ---
Date of Encounter: 06/19/17 Time of Encounter: 12:20 PCR - POD#1 -LEFT failed closed reduction, converted to Revision THR with removal of hardware. *WBAT, in TSCOPE brace with no KNEE ROM SHELDON PLACED GRAM STAIN NEGATIVE, AWAITING CULTURES CONTINUE IV ANTIBIOTICS - ZOSYN ESR: 72 5/7 CRP: 71 5/7 H/H stable - 9.6/29 Hypokalemia - treated by medical team
--- NOTE | 2017-06-19 13:39 | Internal Med Progress Note ---
Date of Encounter: 06/19/17 Time of Encounter: 09:30 - Assessment and plan (1) Hip dislocation, left Current Visit: Yes Status: Acute Assessment and plan: Patient failed attempted closed reduction and underwent an open reduction instead yesterday Orthopedic surgery following. I will follow recommendations. Discussed PoC w Ortho surgery in detail this AM and also made RN and patient aware of this. THAIS drain in place. Hoping to continue to work with physical therapy and then eventually transition to nursing home facility in the next few days Patient is doing well from a pain standpoint. Qualifiers: Encounter type: initial encounter Qualified Code(s): S73.005A - Unspecified dislocation of left hip, initial encounter (2) Acute renal failure (ARF) Current Visit: Yes Status: Acute Assessment and plan: Found to have acute renal failure. Pt stated her PO intake had not been adequate prior to coming to the hospital. However she was also taking diuretics continuously. Both of this most likely played a role in acute renal failure. We will continue to monitor with serial BMP. She has had improvement in her creatinine after fluids have been administered. If the trend of improvement of creatinine does not continue then we will consider nephrology consult For now we will continue to hold diuretics and continue hydration. At the time of discharge her outpatient diuretics might need to be adjusted Qualifiers: Acute renal failure type: unspecified Qualified Code(s): N17.9 - Acute kidney failure, unspecified (3) Hypokalemia Current Visit: Yes Status: Acute Assessment and plan: As likely secondary to dehydration and diuretic use. Continue to replete as necessary and check daily electrolytes (4) HTN (hypertension) Current Visit: No Status: Chronic Assessment and plan: The pressure is stable. Continue to monitor Qualifiers: Hypertension type: essential hypertension Qualified Code(s): I10 - Essential (primary) hypertension (5) Diabetes mellitus Current Visit: Yes Status: Acute Assessment and plan: Stable. continue monitoring. We will continue on insulin sliding scale while here. Place on Accu-Cheks. Qualifiers: Diabetes mellitus type: type 2 Diabetes mellitus dedicated intermodal truck driver insulin use: without dedicated intermodal truck driver use Diabetes mellitus complication status: without complication Qualified Code(s): E11.9 - Type 2 diabetes mellitus without complications (6) DVT prophylaxis Current Visit: Yes Status: Acute Assessment and plan: Heparin subcutaneous - Time Spent With Patient Total time spent is greater than 50% in coordination of care (as documented) at patient's floor/unit and/or counseling patient: Greater than 35 minutes - Subjective Interval history: doing well post op. Denies fevers chills or SOB. States her pain is well controlled as far as her left hip is concerned. - Constitutional Vitals: Temp Pulse Resp BP Pulse Ox 97.5 F L 93 16 130/80 93 06/19/17 11:30 06/19/17 11:30 06/19/17 11:30 06/19/17 11:30 06/19/17 11:30 Exam: GENERAL: Alert, no distress, cooperative LUNGS: Lungs clear to auscultation, Good diaphragmatic excursion CARDIAC: Normal S1 and S2; no rubs, murmurs, or gallops ABDOMEN: Abdomen soft, non-tender, BS normal, No masses or organomegaly EXTREMITIES: post surgical bandage over left hip w THAIS drain in place PULSES: 2+ radial, 2+ carotid Rest of the exam is non contributory Internal Medicine: Result - Labs CBC & Chem 7: 06/19/17 06:02 06/19/17 10:20 Labs: Short CBC 06/19/17 Range/Units 06:02 Hgb 9.6 L (11.5-15.4) g/dL Hct 29.7 L (35.3-44.9) % BMP 06/19/17 10:20 Sodium 136 Potassium 3.1 L Chloride 100 Carbon Dioxide 24 BUN 24 H Creatinine 2.23 H Glucose 185 H Calcium 8.4 L Liver Function 06/19/17 Range/Units 10:20 Total Bilirubin 0.4 (0.3-1.0) mg/dL AST 16 (13-39) Units/L ALT 8 (7-52) Units/L Alkaline Phosphatase 81 (34-104) Units/L Albumin 3.2 L (3.5-5.7) g/dL - ABG Interpretation ABG results: PT/INR, D-dimer PT 14.3 Seconds (9.4-12.1) H 06/18/17 00:26 - VTE Documentation of Mechanical Device: Intermittent pneumatic compression device Consult Discharge Plan - Plan Referrals: Levi Fu DO [Primary Care Provider] -
[2017-06-19] MEDS: Ringers Solution, Lactated 1,000 ML IVC SCH (13:50)
[2017-06-19] MEDS: Famotidine 20 MG TABLET PO SCH (19:50)
[2017-06-20 01:52] LABS: Basophils # 0.1 K/mcL (0.0-0.2); Basophils % 0.7 %; Eosinophils # 0.2 K/mcL (0.0-0.6); Eosinophils % 1.7 %; Hemoglobin 8.1 g/dL (11.5-15.4); Immature Granulocytes % 0.4 % (0-4); Lymphocytes # 1.7 K/mcL (0.6-4.6); Lymphocytes % 18.1 %; Mean Corpuscular HGB Conc 32.4 g/dL (31.6-35.5); Mean Corpuscular Hemoglobin 28.3 pg (28.0-33.3); Mean Corpuscular Volume 87.4 fL (83.0-100.0); Mean Platelet Volume 10.6 fL (9.4-12.4); Monocytes # 1.2 K/mcL (0.0-1.3); Monocytes % 12.5 %; Neutrophils # 6.3 K/mcL (1.6-8.9); Nucleated Red Blood Cells 0.2 /100 WBC (0); Platelet Count 419 K/mcL (140-400); Red Blood Count 2.86 M/mcL (3.82-4.97); Segmented Neutrophils % 66.6 %
[2017-06-20 02:11] LABS: Calcium 8.3 mg/dL (8.6-10.3); Potassium 3.3 mEq/L (3.5-5.1)
[2017-06-20] MEDS: *HR* Heparin 5,000 UNIT/ML VIAL SQ SCH ×3 (04:57→20:14)
[2017-06-20] MEDS: Piperacillin/Tazobactam 3.375 GM in 0.9 % Sodium Chloride Mini Bag 100 ML IVPB SCH ×2 (04:57→16:30)
[2017-06-20] MEDS: Insulin LISPRO 300 UNITS/3 ML VIAL SQ SCH ×3 (05:00→17:00)
--- NOTE | 2017-06-20 06:41 | Orthopedics Progress Note ---
Date of Encounter: 06/20/17 Time of Encounter: 06:40 Subjective Interval history: Patient was seen this morning doing well without complaints. Afebrile vital signs stable. Operative extremity: Neurovascularly intact Dressing clean dry and intact Calves nontender Assessment and plan: Continue with postoperative care Hematocrit 25 transfuse 2 units, pull THAIS, x-ray her left hip cultures negative to date Objective Vital signs: Vital Signs Temp Pulse Resp BP Pulse Ox 06/20/17 04:02 97.9 F 83 16 100 06/20/17 00:08 98.0 F 88 16 127/74 95 06/19/17 19:02 98.4 F 89 16 132/71 97 06/19/17 15:43 98.8 F 98 16 122/73 94 06/19/17 11:30 97.5 F L 93 16 130/80 93 Intake and Output 06/19/17 06/19/17 06/20/17 15:59 23:59 07:59 Intake Total 220 / 220 740 / 740 50 / 50 Output Total 130 / 130 45 / 45 55 / 55 Balance 90 / 90 695 / 695 -5 / -5 Intake: IV Fluids 100 / 100 100 / 100 Zosyn 3.375 GM In 0.9 % Sodium 100 / 100 100 / 100 Chloride (Mini-Bag +) 100 ML @ 25 mls/hr IVPB Q12H [facility] Rx#: [id number] Oral 120 / 120 640 / 640 50 / 50 Output: Other 20 / 20 20 / 20 Wound Drainage 130 / 130 25 / 25 35 / 35 Left Hip 130 / 130 25 / 25 35 / 35 Other: Meal Breakfast Dinner Percent of Meal Consumed 95% 10% Stool Size Small Moderate Moderate Stool Consistency soft loose liquid Stool Color Brown Brown # Voids 1 1 1 # Bowel Movements 1 1 1 Blood Glucose* 109 145 105 - Labs CBC & BMP: 06/20/17 01:07 06/20/17 01:07 Labs: Abnormal lab results RBC 2.86 M/mcL (3.82-4.97) L 06/20/17 01:07 Hgb 8.1 g/dL (11.5-15.4) L D 06/20/17 01:07 Hct 25.0 % (35.3-44.9) L 06/20/17 01:07 Plt Count 419 K/mcL (140-400) H 06/20/17 01:07 Nucleated RBCs/100 WBC 0.2 /100 WBC (0) H 06/20/17 01:07 ESR 72 mm/hr (0-15) H 06/18/17 10:33 PT 14.3 Seconds (9.4-12.1) H 06/18/17 00:26 Potassium 3.3 mEq/L (3.5-5.1) L 06/20/17 01:07 BUN 26 mg/dL (8-23) H 06/20/17 01:07 Creatinine 2.12 mg/dL (0.60-1.20) H 06/20/17 01:07 Est GFR ( Amer) 28 (> 60) L 06/20/17 01:07 Est GFR (Non-Af Amer) 23 (> 60) L 06/20/17 01:07 Glucose 118 mg/dL (70-105) H 06/20/17 01:07 POC Glucose 105 mg/dL (70-99) H 06/20/17 04:58 Calcium 8.3 mg/dL (8.6-10.3) L 06/20/17 01:07 C-Reactive Protein 71 mg/L (Less than 10) H 06/18/17 10:33 Serum Total Protein 6.3 g/dL (6.4-8.9) L 06/19/17 10:20 Albumin 3.2 g/dL (3.5-5.7) L 06/19/17 10:20 Albumin/Globulin Ratio 1.0 (1.1-2.2) L 06/19/17 10:20 - VTE Documentation of Mechanical Device: Intermittent pneumatic compression device Consult Discharge Plan - Plan Referrals: Levi Fu DO [Primary Care Provider] -
[2017-06-20] MEDS ORDERED: Furosemide 20 MG/2 ML VIAL IVP ONE (06:44)
[2017-06-20] MEDS: Ascorbic Acid 500 MG TABLET PO SCH ×2 (07:58→14:14)
[2017-06-20] MEDS: Multivit/Ca/Min/Fe/FA 1 TAB TABLET PO SCH (07:58)
--- NOTE | 2017-06-20 13:29 | Internal Med Progress Note ---
<Lalo Morales - Last Filed: 06/20/17 14:02> Date of Encounter: 06/20/17 Time of Encounter: 10:30 - Assessment and plan (1) Hip dislocation, left Current Visit: Yes Status: Acute Assessment and plan: Acute hip dislocation w/pt. failing closed reduction and undergoing open reduction on 06/18/17. Pt. reports that pain is improving and she is ambulating to bathroom w/assistance. PT recommendation for 10 days of rehabilitation and SNF post-discharge which pt. is amenable to. Continue to monitor pt. for pain and encourage ambulation as tolerated. Qualifiers: Encounter type: initial encounter Qualified Code(s): S73.005A - Unspecified dislocation of left hip, initial encounter (2) Acute renal failure (ARF) Current Visit: Yes Status: Acute Assessment and plan: Acute renal failure w/worsening GFR since 06/07/17 (GFR 17). Renal function slightly improving daily from GFR 20 on 06/18 to 23 today. Continue to hold diuretics and continue IV fluids judiciously. Nephrology consult ordered and discussed w/Dr. Landa who will see pt. for work-up and I appreciate the consult. Monitor I&O. Adjust diuretics on discharge. Qualifiers: Acute renal failure type: unspecified Qualified Code(s): N17.9 - Acute kidney failure, unspecified (3) HTN (hypertension) Current Visit: Yes Status: Chronic Assessment and plan: Hx of chronic HTN. Pt. is not currently taking HTN medications. Monitor pt. and VS. Will add hydralazine 10 mg Q6HR PRN w/parameters if warranted. Qualifiers: Hypertension type: essential hypertension Qualified Code(s): I10 - Essential (primary) hypertension (4) Diabetes mellitus Current Visit: Yes Status: Chronic Assessment and plan: Hx of chronic DM controlled by diet and lifestyle. BG checks ACHS. A1c in a.m. labs. Low-dose correction insulin sliding scale with hypoglycemic protocol. Qualifiers: Diabetes mellitus type: type 2 Diabetes mellitus fdc insulin use: without fdc use Diabetes mellitus complication status: without complication Qualified Code(s): E11.9 - Type 2 diabetes mellitus without complications (5) DVT prophylaxis Current Visit: Yes Status: Acute Assessment and plan: Continue heparin 5,000 units SQ Q8HR. Monitor pt. for signs of bleeding. (6) Hypokalemia Current Visit: Yes Status: Acute Assessment and plan: Acute hypokalemia w/potassium of 3.3 today. 40 mEq PO potassium ordered w/re- check potassium level at 04:00. - Time Spent With Patient Total time spent is greater than 50% in coordination of care (as documented) at patient's floor/unit and/or counseling patient: 25 - 35 minutes - Subjective Interval history: Patient examined at bedside. Reports that her pain is well-controlled and that she has been up to bathroom w/assistance and ambulating. Also reports BMs x4 yesterday. Reports some residual pain in left hip but denies fever, chills, shortness of breath, chest pain, nausea, vomiting. Vital signs stable. PT recommendations for 10 days of rehabilitation in SNF post-discharge. Pt. is amenable to this plan. - Constitutional Vitals: Temp Pulse Resp BP Pulse Ox 97.8 F 92 16 128/73 96 06/20/17 09:56 06/20/17 09:56 06/20/17 09:56 06/20/17 09:56 06/20/17 09:56 General appearance: Present: cooperative, mild distress (Left hip pain - mild), A&O X 3, answers questions appropriately - Head Head exam: Present: atraumatic, normocephalic - Eye Eye exam: Present: PERRL, conjuntiva pink, sclera anicteric Pupils: Present: PERRL - ENT ENT exam: Present: normal exam - Neck Neck exam general surgery: Present: normal inspection - Respiratory Respiratory exam: Present: CTAB. Absent: accessory muscle use, rales, rhonchi, wheezes - Cardiovascular Cardiovascular exam: Present: RRR, +S1, +S2. Absent: diastolic murmur, gallop, rubs, systolic murmur - GI/Abdominal GI/Abdominal exam: Present: normal bowel sounds, soft, no peritoneal signs. Absent: distended, tenderness - Rectal Rectal exam: Present: deferred - Additional comments: exam deferred. - Extremities Exam Extremities exam: Present: warm, radial pulses palpable and symmetrical. Absent : calf tenderness, cyanotic, pedal edema - Back Exam Back exam: Present: normal inspection - Neurological Exam Neurological exam: Present: CN II-XII intact, oriented X3, no focal deficits. Absent: pronater drift, facial droop, speech deficit - Psychiatric Psychiatric exam: Present: normal affect, normal mood - Skin Skin exam: Present: dry, intact Internal Medicine: Result - Labs CBC & Chem 7: 06/20/17 12:58 06/20/17 01:07 Labs: Short CBC 06/20/17 Range/Units 01:07 WBC 9.5 (4.3-11.1) K/mcL Hgb 8.1 L D (11.5-15.4) g/dL Hct 25.0 L (35.3-44.9) % Plt Count 419 H (140-400) K/mcL Neutrophils # 6.3 (1.6-8.9) K/mcL BMP 06/20/17 01:07 Sodium 136 Potassium 3.3 L Chloride 103 Carbon Dioxide 24 BUN 26 H Creatinine 2.12 H Glucose 118 H Calcium 8.3 L - ABG Interpretation ABG results: PT/INR, D-dimer PT 14.3 Seconds (9.4-12.1) H 06/18/17 00:26 - Impressions Impressions Hip X-Ray 06/20/17 06:42 IMPRESSION: Satisfactory and stable alignment, left hip arthroplasty. D/ / Zafar Lara MD / Zafar Lara MD Interpreting Provider: Zafar Lara MD - Diagnostic Studies Other Images Additional comments: Impressions Hip X-Ray 06/20/17 06:42 IMPRESSION: Satisfactory and stable alignment, left hip arthroplasty. D/ / Zafar Lara MD / Zafar Lara MD Interpreting Provider: Zafar Lara MD - VTE Documentation of Mechanical Device: Intermittent pneumatic compression device Consult Discharge Plan - Plan Referrals: Levi Fu DO [Primary Care Provider] - <Cierra Sauceda - Last Filed: 06/21/17 08:40> Date of Encounter: 06/20/17 Time of Encounter: 11:00 - Assessment and plan (1) HTN (hypertension) Current Visit: Yes Status: Chronic Qualifiers: Hypertension type: essential hypertension Qualified Code(s): I10 - Essential (primary) hypertension (2) Hip dislocation, left Current Visit: Yes Status: Acute Qualifiers: Encounter type: initial encounter Qualified Code(s): S73.005A - Unspecified dislocation of left hip, initial encounter (3) Diabetes mellitus Current Visit: Yes Status: Chronic Qualifiers: Diabetes mellitus type: type 2 Diabetes mellitus intermediate project manager insulin use: without fdc use Diabetes mellitus complication status: without complication Qualified Code(s): E11.9 - Type 2 diabetes mellitus without complications (4) DVT prophylaxis Current Visit: Yes Status: Acute (5) Acute renal failure (ARF) Current Visit: Yes Status: Acute Qualifiers: Acute renal failure type: unspecified Qualified Code(s): N17.9 - Acute kidney failure, unspecified (6) Hypokalemia Current Visit: Yes Status: Acute - Time Spent With Patient Total time spent is greater than 50% in coordination of care (as documented) at patient's floor/unit and/or counseling patient: - Constitutional Vitals: Temp Pulse Resp BP Pulse Ox 98 F 81 16 128/76 95 06/21/17 07:00 06/21/17 07:00 06/21/17 07:00 06/21/17 07:00 06/21/17 07:00 Internal Medicine: Result - Labs CBC & Chem 7: 06/21/17 01:38 06/21/17 01:38 Labs: Short CBC 06/20/17 06/21/17 Range/Units 12:58 01:38 Hgb 8.2 L 7.4 L (11.5-15.4) g/dL Hct 25.9 L 22.8 L (35.3-44.9) % BMP 06/21/17 01:38 Potassium 3.8 - ABG Interpretation ABG results: PT/INR, D-dimer PT 14.3 Seconds (9.4-12.1) H 06/18/17 00:26 - Impressions Impressions Hip X-Ray 06/20/17 06:42 IMPRESSION: Satisfactory and stable alignment, left hip arthroplasty. D/ / Zafar Lara MD / Zafar Lara MD Interpreting Provider: Zafar Lara MD Hip X-Ray 06/21/17 06:18 IMPRESSION: Unchanged left hip prosthesis without complicating features. D/ / Brett Gee / Brett Gee Interpreting Provider: Brett Gee - Attending Attestation LATE ENTRY- Patient was seen , examined at bedside. I personally participated in the formulation of the A/P as highlighted in hand shoe cutter note. Pt is POD #2 Open surgey for displaced hardware from prior Left JUANITA.Drain has been removed and patient was sittingg upright - pain is well controlled Exam erickson, mild local TTP over bandages felt on left hip VSS.Labs reviwed and showed drop in Hgb for which ortho service has initiated 2 U PRBC. Also showed downtrending cr. Cause of ARF unclear but most liekly diuretic use in setting of poor PO intake. Rehab working with her. Anticipate DC soon to rehab Rest of A/P as per BRICK OR BLOCK MAKER documentation
[2017-06-20 13:34] LABS: Hematocrit 25.9 % (35.3-44.9); Hemoglobin 8.2 g/dL (11.5-15.4)
[2017-06-20] MEDS ORDERED: 0.9 % Sodium Chloride 1,000 ML IVC SCH (14:00)
[2017-06-20] MEDS: Famotidine 20 MG TABLET PO SCH (20:13)
[2017-06-21] MEDS: Insulin LISPRO 300 UNITS/3 ML VIAL SQ SCH ×5 (00:39→23:48)
[2017-06-21 05:58] LABS: Hematocrit 22.8 % (35.3-44.9); Hemoglobin 7.4 g/dL (11.5-15.4)
[2017-06-21] MEDS: Piperacillin/Tazobactam 3.375 GM in 0.9 % Sodium Chloride Mini Bag 100 ML IVPB SCH ×2 (05:58→16:37)
[2017-06-21] MEDS: *HR* Heparin 5,000 UNIT/ML VIAL SQ SCH ×3 (05:59→20:39)
--- NOTE | 2017-06-21 08:00 | Orthopedics Progress Note ---
Date of Encounter: 06/21/17 Time of Encounter: 08:00 Subjective Interval history: Patient was seen this morning doing well without complaints. Afebrile vital signs stable. Operative extremity: Neurovascularly intact Dressing clean dry and intact Calves nontender Assessment and plan: Continue with postoperative care Hematocrit 22 patient refused closed yesterday will transfuse 2 units, plan for discharge today or tomorrow Objective Vital signs: Vital Signs Temp Pulse Resp BP Pulse Ox 06/21/17 07:00 98 F 81 16 128/76 95 06/21/17 03:55 97.9 F 76 16 134/74 96 06/20/17 23:40 97.9 F 85 16 134/75 98 06/20/17 19:07 98.0 F 100 16 137/73 99 06/20/17 14:51 98.1 F 87 16 134/68 96 06/20/17 09:56 97.8 F 92 16 128/73 96 Intake and Output 06/20/17 06/21/17 06/21/17 23:59 07:59 15:59 Intake Total 400 / 400 Balance 400 / 400 Intake: IV Fluids 100 / 100 Zosyn 3.375 GM In 0.9 % Sodium 100 / 100 Chloride (Mini-Bag +) 100 ML @ 25 mls/hr IVPB Q12H [facility] Rx#: [id number] Oral 300 / 300 Other: # Voids 1 Blood Glucose* 95 92 - Labs CBC & BMP: 06/21/17 01:38 06/21/17 01:38 Labs: Abnormal lab results RBC 2.86 M/mcL (3.82-4.97) L 06/20/17 01:07 Hgb 7.4 g/dL (11.5-15.4) L 06/21/17 01:38 Hct 22.8 % (35.3-44.9) L 06/21/17 01:38 Plt Count 419 K/mcL (140-400) H 06/20/17 01:07 Nucleated RBCs/100 WBC 0.2 /100 WBC (0) H 06/20/17 01:07 ESR 72 mm/hr (0-15) H 06/18/17 10:33 PT 14.3 Seconds (9.4-12.1) H 06/18/17 00:26 BUN 26 mg/dL (8-23) H 06/20/17 01:07 Creatinine 2.12 mg/dL (0.60-1.20) H 06/20/17 01:07 Est GFR ( Amer) 28 (> 60) L 06/20/17 01:07 Est GFR (Non-Af Amer) 23 (> 60) L 06/20/17 01:07 Glucose 118 mg/dL (70-105) H 06/20/17 01:07 Calcium 8.3 mg/dL (8.6-10.3) L 06/20/17 01:07 C-Reactive Protein 71 mg/L (Less than 10) H 06/18/17 10:33 Serum Total Protein 6.3 g/dL (6.4-8.9) L 06/19/17 10:20 Albumin 3.2 g/dL (3.5-5.7) L 06/19/17 10:20 Albumin/Globulin Ratio 1.0 (1.1-2.2) L 06/19/17 10:20 - VTE Documentation of Mechanical Device: Intermittent pneumatic compression device Consult Discharge Plan - Plan Referrals: Levi Fu DO [Primary Care Provider] -
[2017-06-21] MEDS: Multivit/Ca/Min/Fe/FA 1 TAB TABLET PO SCH (08:38)
[2017-06-21] MEDS: Ascorbic Acid 500 MG TABLET PO SCH ×2 (08:38→16:36)
[2017-06-21] MEDS: *HR* HYDROcodone/Acet 5/325 mg TABLET PO PRN (08:38)
[2017-06-21 08:48] LABS: Estimated Average Glucose 123 mg/dl; Hemoglobin A1C 5.9 %
[2017-06-21 10:02] LABS: Basophils # 0.1 K/mcL (0.0-0.2); Basophils % 0.9 %; Eosinophils # 0.3 K/mcL (0.0-0.6); Eosinophils % 3.5 %; Hematocrit 23.7 % (35.3-44.9); Hemoglobin 7.8 g/dL (11.5-15.4); Immature Granulocytes % 0.7 % (0-4); Lymphocytes # 1.2 K/mcL (0.6-4.6); Lymphocytes % 15.6 %; Mean Corpuscular HGB Conc 32.9 g/dL (31.6-35.5); Mean Corpuscular Hemoglobin 28.1 pg (28.0-33.3); Mean Corpuscular Volume 85.3 fL (83.0-100.0); Mean Platelet Volume 9.9 fL (9.4-12.4); Monocytes # 0.9 K/mcL (0.0-1.3); Monocytes % 11.7 %; Platelet Count 473 K/mcL (140-400); Red Blood Count 2.78 M/mcL (3.82-4.97); Segmented Neutrophils % 67.6 %
[2017-06-21 10:17] LABS: Calcium 8.4 mg/dL (8.6-10.3); Potassium 3.5 mEq/L (3.5-5.1)
--- NOTE | 2017-06-21 10:57 | Internal Med Progress Note ---
Date of Encounter: 06/21/17 Time of Encounter: 10:55 - Assessment and plan (1) Hip dislocation, left Current Visit: Yes Status: Acute Assessment and plan: Acute hip dislocation w/pt. failing closed reduction and undergoing open reduction on 06/18/17. Pt. reports that pain is improving and she is ambulating to bathroom w/assistance. PT recommendation for 10 days of rehabilitation and SNF post-discharge which pt. is amenable to. Continue to monitor pt. for pain and encourage ambulation as tolerated. Discussed disposition with the nursing as well as case management in detail. This seems to be very challenging situation the patient is already undergoing some home care situation evaluation with her and adult protective services also involved. The patient at this point does not want to go to a assisted or rehabilitation but wants to go to home with home care. She is a 2 person assist at least and it is not advisable to go home with home care and I am strongly insisting her to go the rehabilitation without. She seems resistant to this idea. They will be having a family discussion later on today and we will see what outcome we get. Qualifiers: Encounter type: subsequent encounter Qualified Code(s): S73.005D - Unspecified dislocation of left hip, subsequent encounter (2) Acute renal failure (ARF) Current Visit: Yes Status: Acute Assessment and plan: Acute renal failure w/worsening GFR since 06/07/17 (GFR 17). Renal function slightly improving daily from GFR 20 on 06/18 to 23 today. Continue to hold diuretics and continue IV fluids judiciously. Nephrology consult ordered and discussed w/Dr. Landa who will see pt. for work-up and I appreciate the consult. Monitor I&O. Adjust diuretics on discharge. 06/21/2017-awaiting nephrology consultation. Creatinine slowly improving with hydration alone. Most likely culprit here is prerenal failure from poor by mouth intake as well as continued diuretic use. Her GFR has certainly decreased in the last month which is more concerning than anything else Qualifiers: Acute renal failure type: unspecified Qualified Code(s): N17.9 - Acute kidney failure, unspecified (3) Acute blood loss anemia Current Visit: No Status: Acute Assessment and plan: Patient refused PRBC transfusion yesterday. Hemoglobin currently 7.8. Orthopedics has ordered 2 units of PRBCs which will be administered today. She does not appear to symptomatic from the same. We will continue to monitor with daily CBC (4) Diabetes mellitus Current Visit: Yes Status: Chronic Assessment and plan: Stable. Continue to monitor with serial Accu-Cheks and sliding scale Qualifiers: Diabetes mellitus type: type 2 Diabetes mellitus mcfp insulin use: without oysterman use Diabetes mellitus complication status: without complication Qualified Code(s): E11.9 - Type 2 diabetes mellitus without complications (5) DVT prophylaxis Current Visit: Yes Status: Acute (6) Hypokalemia Current Visit: Yes Status: Resolved Assessment and plan: Currently appears to be resolved we will trend with serial daily BMPs (7) HTN (hypertension) Current Visit: Yes Status: Chronic Assessment and plan: Stable. Continue to monitor closely Qualifiers: Hypertension type: essential hypertension Qualified Code(s): I10 - Essential (primary) hypertension - Time Spent With Patient Total time spent is greater than 50% in coordination of care (as documented) at patient's floor/unit and/or counseling patient: Greater than 35 minutes (More than 50% of the time spent in [id number]-[id number] counseling) - Subjective Interval history: Patient doing well. Sitting upright in chair and watching television. States her pain is well controlled. As any fevers chills or shortness of breath at this point - Constitutional Vitals: Temp Pulse Resp BP Pulse Ox 98 F 81 16 128/76 95 06/21/17 07:00 06/21/17 07:00 06/21/17 07:00 06/21/17 07:00 06/21/17 07:00 General appearance: Present: cooperative, mild distress (Left hip pain - mild), A&O X 3, answers questions appropriately Exam: GENERAL: Alert, no distress, cooperative LUNGS: Lungs clear to auscultation, Good diaphragmatic excursion CARDIAC: Normal S1 and S2; no rubs, murmurs, or gallops ABDOMEN: Abdomen soft, non-tender, BS normal, No masses or organomegaly EXTREMITIES: Left hip postoperative bandage in place. PULSES: 2+ radial, 2+ carotid Rest of the exam is non contributory Internal Medicine: Result - Labs CBC & Chem 7: 06/21/17 09:38 06/21/17 09:38 Labs: Short CBC 06/20/17 06/21/17 06/21/17 Range/Units 12:58 01:38 09:38 WBC 7.4 (4.3-11.1) K/mcL Hgb 8.2 L 7.4 L 7.8 L (11.5-15.4) g/dL Hct 25.9 L 22.8 L 23.7 L (35.3-44.9) % Plt Count 473 H (140-400) K/mcL Neutrophils # 5.0 (1.6-8.9) K/mcL BMP 06/21/17 06/21/17 01:38 09:38 Sodium 138 Potassium 3.8 3.5 Chloride 104 Carbon Dioxide 23 BUN 20 Creatinine 2.03 H Glucose 122 H Calcium 8.4 L - ABG Interpretation ABG results: PT/INR, D-dimer PT 14.3 Seconds (9.4-12.1) H 06/18/17 00:26 - Impressions Impressions Hip X-Ray 06/20/17 06:42 IMPRESSION: Satisfactory and stable alignment, left hip arthroplasty. D/ / Zafar Lara MD / Zafar Lara MD Interpreting Provider: Zafar Lara MD Hip X-Ray 06/21/17 06:18 IMPRESSION: Unchanged left hip prosthesis without complicating features. D/ / Brett Gee / Brett Gee Interpreting Provider: Brett Gee - VTE Documentation of Mechanical Device: Intermittent pneumatic compression device Consult Discharge Plan - Plan Referrals: Levi Fu DO [Primary Care Provider] -
[2017-06-21] MEDS ORDERED: 0.9 % Sodium Chloride 500 ML ONE (11:02)
[2017-06-21] MEDS: Furosemide 20 MG/2 ML VIAL IVP PRN ×2 (13:53→16:43)
[2017-06-21] MEDS: Famotidine 20 MG TABLET PO SCH (20:39)
[2017-06-22 05:12] LABS: Hematocrit 28.8 % (35.3-44.9); Hemoglobin 9.9 g/dL (11.5-15.4)
[2017-06-22] MEDS: Piperacillin/Tazobactam 3.375 GM in 0.9 % Sodium Chloride Mini Bag 100 ML IVPB SCH (06:08)
[2017-06-22] MEDS: Insulin LISPRO 300 UNITS/3 ML VIAL SQ SCH ×2 (06:09→11:49)
[2017-06-22] MEDS: *HR* HYDROcodone/Acet 5/325 mg TABLET PO PRN ×2 (06:19→12:52)
--- NOTE | 2017-06-22 06:26 | Orthopedics Progress Note ---
Date of Encounter: 06/22/17 Time of Encounter: 06:25 Subjective Interval history: Patient was seen this morning doing well without complaints. Afebrile vital signs stable. Operative extremity: Neurovascularly intact Dressing clean dry and intact Calves nontender Assessment and plan: Continue with postoperative care Hematocrit 28 patient with some bleeding overnight no active bleeding this morning wound clean dry and intact reece added cleared for discharge Objective Vital signs: Vital Signs Temp Pulse Resp BP Pulse Ox 06/21/17 23:16 97.9 F 86 16 153/83 98 06/21/17 19:18 98.0 F 88 16 139/83 99 06/21/17 16:32 97.9 F 79 16 148/75 100 06/21/17 14:31 97.9 F 72 16 133/75 100 06/21/17 13:51 97.9 F 82 16 136/78 100 06/21/17 11:34 98.0 F 74 17 144/82 100 06/21/17 11:07 97.8 F 75 16 137/76 100 06/21/17 07:00 98 F 81 16 128/76 95 Intake and Output 06/21/17 06/21/17 06/22/17 15:59 23:59 07:59 Intake Total 400 / 400 700 / 700 Output Total 350 / 350 950 / 950 200 / 200 Balance 50 / 50 -250 / -250 -200 / -200 Intake: IV Fluids 100 / 100 100 / 100 Zosyn 3.375 GM In 0.9 % Sodium 100 / 100 100 / 100 Chloride (Mini-Bag +) 100 ML @ 25 mls/hr IVPB Q12H [facility] Rx#: [id number] Oral 300 / 300 Blood Product 300 / 300 300 / 300 Rbcs Leuko Poor As-1 Unit 300 / 300 [id number] Rbcs Leuko Poor As-1 Unit 0 / 0 300 / 300 [id number] Output: Urine 350 / 350 950 / 950 Urine/Stool Mix 200 / 200 Other: # Voids 1 1 Blood Glucose* 117 110 109 - Labs CBC & BMP: 06/22/17 04:53 06/21/17 09:38 Labs: Abnormal lab results RBC 2.78 M/mcL (3.82-4.97) L 06/21/17 09:38 Hgb 9.9 g/dL (11.5-15.4) L D 06/22/17 04:53 Hct 28.8 % (35.3-44.9) L 06/22/17 04:53 Plt Count 473 K/mcL (140-400) H 06/21/17 09:38 Nucleated RBCs/100 WBC 0.2 /100 WBC (0) H 06/20/17 01:07 ESR 72 mm/hr (0-15) H 06/18/17 10:33 PT 14.3 Seconds (9.4-12.1) H 06/18/17 00:26 Creatinine 2.03 mg/dL (0.60-1.20) H 06/21/17 09:38 Est GFR ( Amer) 29 (> 60) L 06/21/17 09:38 Est GFR (Non-Af Amer) 24 (> 60) L 06/21/17 09:38 Glucose 122 mg/dL (70-105) H 06/21/17 09:38 POC Glucose 109 mg/dL (70-99) H 06/22/17 05:42 Hemoglobin A1c 5.9 % (-5.6) H 06/21/17 01:38 Calcium 8.4 mg/dL (8.6-10.3) L 06/21/17 09:38 C-Reactive Protein 71 mg/L (Less than 10) H 06/18/17 10:33 Serum Total Protein 6.3 g/dL (6.4-8.9) L 06/19/17 10:20 Albumin 3.2 g/dL (3.5-5.7) L 06/19/17 10:20 Albumin/Globulin Ratio 1.0 (1.1-2.2) L 06/19/17 10:20 - VTE Documentation of Mechanical Device: Venous foot pump, device Consult Discharge Plan - Plan Referrals: Levi Fu DO [Primary Care Provider] -
[2017-06-22] MEDS: Ascorbic Acid 500 MG TABLET PO SCH (07:53)
[2017-06-22] MEDS: Multivit/Ca/Min/Fe/FA 1 TAB TABLET PO SCH (07:53)
--- NOTE | 2017-06-22 11:39 | Discharge Summary ---
- NOTES TO OUTPATIENT PROVIDER Notes to Outpatient Provider: Patient will need close follow-up of her renal status as an outpatient. She was presented with what seems like acute renal failure in addition to the problems with her left hip as needed surgical intervention. The clear etiology of renal failure is unclear at this point however is most likely because of her being on diuretics and having poor by mouth intake. She has improved in terms of her creatinine while inpatient with fluids and at the time of discharge I am going to hold her diuretics and she needs to closely follow up with her primary care physician. Date of Encounter: 06/22/17 Time of Encounter: 11:00 - Discharge Diagnosis (1) Hip dislocation, left Priority: Primary Status: Acute Qualifiers: Encounter type: subsequent encounter Qualified Code(s): S73.005D - Unspecified dislocation of left hip, subsequent encounter (2) Acute renal failure (ARF) Priority: Secondary Status: Acute Qualifiers: Acute renal failure type: unspecified Qualified Code(s): N17.9 - Acute kidney failure, unspecified (3) Acute blood loss anemia Priority: Secondary Status: Acute (4) Diabetes mellitus Priority: Secondary Status: Chronic Qualifiers: Diabetes mellitus type: type 2 Diabetes mellitus middle or intermediate school principal insulin use: without penitentiary use Diabetes mellitus complication status: without complication Qualified Code(s): E11.9 - Type 2 diabetes mellitus without complications (5) DVT prophylaxis Priority: Secondary Status: Acute (6) Hypokalemia Priority: Secondary Status: Resolved (7) HTN (hypertension) Priority: Secondary Status: Chronic Qualifiers: Hypertension type: essential hypertension Qualified Code(s): I10 - Essential (primary) hypertension Hospital course: Ms. Contreras is a 72 year old female admitted to [facility] with acute dislocation of the left hip prosthesis. The patient failed a closed reduction and underwent an open reduction on 06/18/2017 she also had evidence of acute renal failure which started right about a month before she came to this hospital and was unclear in etiology. Most likely culprit was her continuity diuretic use despite her poor by mouth intake which most likely caused her to go into prerenal failure. She received IV fluids during the hospitalization which helped her creatinine to improve and she continued to trend down towards the 2 Jd close to discharge. She will need to have a follow-up with her primary care physician within the week to 2 weeks time to repeat a blood test to check her creatinine levels. She was diagnosed with post procedure acute blood loss anemia and was given 2 units of packed red blood cells per orthopedics. She has been cleared for discharge by orthopedic surgery and will need to go home with home care. She initially was supposed to go to a long-term facility however due to her social situation as well as her insurance status she has declined going to a usp and would rather go home with home care we will set all this up. Plan of care discussed with the nurse, case sealer, patient in detail Discharge discussed with: patient, nurse, social work, case management - Time Spent with Patient Total time spent providing and/or coordinating discharge services: Greater than 30 minutes - Discharge Medications Prescriptions: HYDROcodone/Acet 5/325 mg [[place] 5-325 mg] 1 tab PO Q6HR PRN 7 Days #15 tablet PRN Reason: Moderate Pain Home Medications: Fluticasone Propionate Nasal [Flonase] 1 - 2 spray NS DAILY 04/25/17 [History] Fluticasone/Salmeterol [Advair 250-50 Diskus] 1 puff IH BID 04/25/17 [History] Mometasone/Formoterol [Dulera 200 Mcg/5 Mcg Inhaler] 2 puff IH Q12H 04/25/17 [ History] Montelukast [Singulair] 10 mg PO DAILY 04/25/17 [History] Pramipexole Di-HCl [Pramipexole Dihydrochloride] 0.125 mg PO BID 04/25/17 [ History] Pregabalin [Lyrica] 100 mg PO BID 04/25/17 [History] Ranitidine HCl [Acid Metal Baler] 150 mg PO HS 04/25/17 [History] Solifenacin Succinate [Vesicare] 5 mg PO DAILY 04/25/17 [History] Acetaminophen [Tylenol] 650 mg PO Q6HR PRN tablet 06/22/17 [Rx] Ascorbic Acid [Vitamin C] 500 mg PO BIDWM tablet 06/22/17 [Rx] Docusate [Colace] 100 mg PO BID capsule 06/22/17 [Rx] Ferrous Sulfate 325 mg PO BIDWM tablet 06/22/17 [Rx] HYDROcodone/Acet 5/325 mg [[place] 5-325 mg] 1 tab PO Q6HR PRN 7 Days #15 tablet 06/22/17 [Rx] MOM Conc [MILK OF MAGNESIA conc] 5 ml PO HS PRN ud.liq 06/22/17 [Rx] Multivit/Ca/Min/Fe/FA [Thera M Plus] 1 tab PO DAILY tablet 06/22/17 [Rx] Allergies/Adverse Reactions: 3 Allergy/AdvReac Type Severity Reaction Status Date / Time Penicillins Allergy See Verified 06/19/17 15:16 Comments Date of admission: 06/18/17 20:52 Primary care physician: Levi Fu DO Consults: 06/18/17 21:29 Consult to Nurse Navigator [CONS] Routine Comment: ortho navigator Consult to Occupational Therapy [CONS] Routine Comment: Evaluate, develop and implement POC Reason for Consult: total hip replacement Does patient have active BEDREST order?: No Is patient medically & hemodynamically stable?: Yes Consult to Physical Therapy [CONS] Routine Comment: Evaluate, develop and implement POC Reason for Consult: total hip replacement Does patient have active BEDREST order?: No Is patient medically & hemodynamically stable?: Yes Consult to Furnace Operator Oil Or Gas [CONS] Routine Reason for SW Consult: post op joint replacement RT Post Op Consult [CONS] Routine - Constitutional Vitals: Temp Pulse Resp BP Pulse Ox 98.1 F 87 16 149/87 95 06/22/17 07:00 06/22/17 07:00 06/22/17 07:00 06/22/17 07:00 06/22/17 07:00 General appearance: Present: cooperative, mild distress (Left hip pain - mild), A&O X 3, answers questions appropriately Exam: GENERAL: Alert, moderate distress, cooperative OROPHARYNX: Lips, mucosa, and tongue normal. Teeth and gums normal. Oropharynx normal. NECK: No jugulovenous distention, No carotid bruits, Carotid pulse normal contour, Supple LUNGS: Lungs clear to auscultation, Good diaphragmatic excursion CARDIAC: Normal S1 and S2; no rubs, murmurs, or gallops ABDOMEN: Abdomen soft, non-tender, BS normal, No masses or organomegaly EXTREMITIES: Left hip with bandage in place. not removed due to patient preference. NEURO: Gait not tested for obvious reasons. Reflexes normal and symmetric. Sensation grossly intact, Cranial nerves II-XII intact PULSES: 2+ radial, 2+ carotid Rest of the exam is non contributory - Patient Status Disposition: Home Health Service Condition: Fair Functional capacity at discharge: uses cane/walker Overall status at discharge: patient is progressing back to baseline - Discharge Instructions Follow Up With: Levi Fu DO [Primary Care Provider] - - Diet and Activity Activity: as per physical therapy Diet: advance to your usual diet - VTE Documentation of Mechanical Device: Intermittent pneumatic compression device
--- NOTE | 2017-06-22 11:41 | Physician Discharge Referral ---
Home Health/Hosp Referral Info Provider in Charge Post Discharge: PCP - Diagnosis (1) Hip dislocation, left Status: Acute (2) Acute renal failure (ARF) Priority: Secondary Status: Acute (3) Acute blood loss anemia Priority: Secondary Status: Acute (4) Diabetes mellitus Priority: Secondary Status: Chronic (5) DVT prophylaxis Priority: Secondary Status: Acute (6) Hypokalemia Priority: Secondary Status: Resolved (7) HTN (hypertension) Priority: Secondary Status: Chronic - Respiratory Orders Smoking Cessation: Smoking cessation has been advised. For more information, call the [employer] Tobacco Quit Line at 8-259-MYWF-NOW. - Dressing/Wound Care Site: left hip surgical site. Instructions per orthopedics Type of Dressing/Treatments w/Frequency: PEr orthopedics Dr Correa - Diet/Nutrition Diet/Nutrition Orders: Regular - Activity Activity: List: As per PT OT - Services Needed Following services are medically necessary services: Nursing, Home Health Aide, Physical Therapy, Occupational Therapy Home Care Orders: Needs wound care as per orthopedic protocol - Transfer Medications Prescriptions: HYDROcodone/Acet 5/325 mg [[place] 5-325 mg] 1 tab PO Q6HR PRN 7 Days #15 tablet PRN Reason: Moderate Pain Home Medications: Fluticasone Propionate Nasal [Flonase] 1 - 2 spray NS DAILY 04/25/17 [History] Fluticasone/Salmeterol [Advair 250-50 Diskus] 1 puff IH BID 04/25/17 [History] Mometasone/Formoterol [Dulera 200 Mcg/5 Mcg Inhaler] 2 puff IH Q12H 04/25/17 [ History] Montelukast [Singulair] 10 mg PO DAILY 04/25/17 [History] Pramipexole Di-HCl [Pramipexole Dihydrochloride] 0.125 mg PO BID 04/25/17 [ History] Pregabalin [Lyrica] 100 mg PO BID 04/25/17 [History] Ranitidine HCl [Acid Churn Driller Helper] 150 mg PO HS 04/25/17 [History] Solifenacin Succinate [Vesicare] 5 mg PO DAILY 04/25/17 [History] Acetaminophen [Tylenol] 650 mg PO Q6HR PRN tablet 06/22/17 [Rx] Ascorbic Acid [Vitamin C] 500 mg PO BIDWM tablet 06/22/17 [Rx] Docusate [Colace] 100 mg PO BID capsule 06/22/17 [Rx] Ferrous Sulfate 325 mg PO BIDWM tablet 06/22/17 [Rx] HYDROcodone/Acet 5/325 mg [[place] 5-325 mg] 1 tab PO Q6HR PRN 7 Days #15 tablet 06/22/17 [Rx] MOM Conc [MILK OF MAGNESIA conc] 5 ml PO HS PRN ud.liq 06/22/17 [Rx] Multivit/Ca/Min/Fe/FA [Thera M Plus] 1 tab PO DAILY tablet 06/22/17 [Rx] Allergies/Adverse Reactions: 3 Allergy/AdvReac Type Severity Reaction Status Date / Time Penicillins Allergy See Verified 06/19/17 15:16 Comments Certification: Further, I certify that my clinical findings support that this patient is homebound (i.e. absences from home require considerable and taxing effort and are for medical reasons or hoahaoism services or infrequently or short duration when for other reasons) because: Homebound Reason: Patient requires assistance of a person or device to safely leave home, Post-surgery restriction and or conditions limit ability to leave home Attestation: My signature below is to certify that this patient is under my care and that I, or nurse practitioner, or a physician's judicial assistant working with me, has a face-to -face encounter with this patient.
[2017-06-22 11:49] VITALS: BP 139/78
--- NOTE | 2017-06-22 12:50 | Event Note ---
Date of Encounter: 06/22/17 Time of Encounter: 12:47 Patient will need close follow-up of her renal status as an outpatient. Wanting to go home with HH now. Saturation to dressing, serusanginous. Continue IV Zosyn at home, setting up. Start TID dressing changes. Updated HH continuity placed. F/up next week in office ANDREWS Date of Encounter: 06/22/17
--- NOTE | 2017-06-22 13:31 | Physician Discharge Referral ---
Home Health/Hosp Referral Info Transfer to: Home Health Attending Provider: Provider in Charge Post Discharge: PCP - Diagnosis (1) Status post revision of total hip replacement Priority: Primary Status: Acute (2) Receiving intravenous antibiotic treatment at home Priority: Primary Status: Acute (3) Diabetes mellitus Priority: Secondary Status: Chronic (4) Acute renal failure (ARF) Priority: Secondary Status: Acute (5) Hypokalemia Priority: Secondary Status: Resolved - Respiratory Orders None Smoking Cessation: Smoking cessation has been advised. For more information, call the [employer] Quit Line at 0-705-KHFN-NOW. - Dressing/Wound Care Site: LEFT Hip Type of Dressing/Treatments w/Frequency: Change dressings TID or as needed per saturation. 4x4/ABD with Medipore tape. Jonathan intact. - Diet/Nutrition Diet/Nutrition Orders: Regular Diet/Nutrition: List: Ensure/Boost needed. - Activity Activity Orders: Up ad elisabeth, Ambulate, Walker - Services Needed Following services are medically necessary services: Nursing, Home Health Aide, Physical Therapy, Occupational Therapy, Home Infusion Home Care Orders: Rehab orders for total hip: Total Hip replacement Precautions x 6 weeks. Dressings per above orders. Apply cold therapy 3-6x/day for 20 minutes at a time. Encourage ambulation throughout the day and incentive spirometer 10x/hour. Elevate affected extremity as tolerated. Brace: Wear hip abduction pillow when laying/sleeping. Wear knee immobilizer at all times. IV Antibiotics needed: Zosyn. - Transfer Medications Prescriptions: HYDROcodone/Acet 5/325 mg [[place] 5-325 mg] 1 tab PO Q6HR PRN 7 Days #15 tablet PRN Reason: Moderate Pain Iiedbnrurmvj-Mhya-Vpvreemk,Iso [Zosyn 3.375 gm/50 ml Galaxy] 3.375 gm IV Q12HR # 1 froz.piggy Chair, Shower [SHOWER CHAIR] 1 each .ROUTE DAILY #1 each Commode - Three In One [THREE IN ONE COMMODE] 1 each .ROUTE PRN #1 each Toilet Seat - Raised [RAISED TOILET SEAT] 1 each .ROUTE AD #1 each Walker [WALKER] 1 each .ROUTE AD #1 each Home Medications: Fluticasone Propionate Nasal [Flonase] 1 - 2 spray NS DAILY 04/25/17 [History] Fluticasone/Salmeterol [Advair 250-50 Diskus] 1 puff IH BID 04/25/17 [History] Mometasone/Formoterol [Dulera 200 Mcg/5 Mcg Inhaler] 2 puff IH Q12H 04/25/17 [ History] Montelukast [Singulair] 10 mg PO DAILY 04/25/17 [History] Pramipexole Di-HCl [Pramipexole Dihydrochloride] 0.125 mg PO BID 04/25/17 [ History] Pregabalin [Lyrica] 100 mg PO BID 04/25/17 [History] Ranitidine HCl [Acid Boat Dispatcher] 150 mg PO HS 04/25/17 [History] Solifenacin Succinate [Vesicare] 5 mg PO DAILY 04/25/17 [History] Acetaminophen [Tylenol] 650 mg PO Q6HR PRN tablet 06/22/17 [Rx] Ascorbic Acid [Vitamin C] 500 mg PO BIDWM tablet 06/22/17 [Rx] Chair, Shower [SHOWER CHAIR] 1 each .ROUTE DAILY #1 each 06/22/17 [Rx] Commode - Three In One [THREE IN ONE COMMODE] 1 each .ROUTE PRN #1 each [Rx] Docusate [Colace] 100 mg PO BID capsule 06/22/17 [Rx] Ferrous Sulfate 325 mg PO BIDWM tablet 06/22/17 [Rx] HYDROcodone/Acet 5/325 mg [[place] 5-325 mg] 1 tab PO Q6HR PRN 7 Days #15 tablet 06/22/17 [Rx] MOM Conc [MILK OF MAGNESIA conc] 5 ml PO HS PRN ud.liq 06/22/17 [Rx] Multivit/Ca/Min/Fe/FA [Thera M Plus] 1 tab PO DAILY tablet 06/22/17 [Rx] Pmgspcxmqauc-Yipf-Bpsqmaxs,Iso [Zosyn 3.375 gm/50 ml Galaxy] 3.375 gm IV Q12HR # 1 froz.piggy 06/22/17 [Rx] Toilet Seat - Raised [RAISED TOILET SEAT] 1 each .ROUTE AD #1 each 06/22/17 [Rx] Walker [WALKER] 1 each .ROUTE AD #1 each 05/11/18 [Rx] Allergies/Adverse Reactions: 3 Allergy/AdvReac Type Severity Reaction Status Date / Time Penicillins Allergy See Verified 06/19/17 15:16 Comments Certification: Further, I certify that my clinical findings support that this patient is homebound (i.e. absences from home require considerable and taxing effort and are for medical reasons or voodoo services or infrequently or short duration when for other reasons) because: Homebound Reason: Post-surgery restriction and or conditions limit ability to leave home Attestation: My signature below is to certify that this patient is under my care and that I, or nurse practitioner, or a physician's physician office assistant working with me, has a face-to -face encounter with this patient.
== END 2017-06-22 16:37 | disposition home health service (06) | DRG 467 ==
LOC: EMEROO 20:15 → 3NENU 20:15 → SUATTDRO 06-18 00:43 → 3NENU 06-18 01:25
PROVIDERS: ADMIT Orthopaedic Surgery; ATTEND Internal Medicine